=== PATIENT | female | born 1985 | race Caucasian/White ===

== ENCOUNTER 2016-11-12 18:31 | Emergency (ER) | payer OTHER ==
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
--- NOTE | 2016-11-12 19:56 | ED ORDER SUMMARY ---
..... Patient: BUSTER VALLE OrderSheet [facility] VisitID: [id number] [place] [address] 31y, F Registration Date/Time: 11/12/2016 ORDER SHEET Weight: 145.1 kg (stated) Allergies: Keflex, Latex, Penicillins, Pristiq, Reglan, Sulfa Antibiotics, Synthetic hormones, Vicodin, Clindamycin, Flu Virus Vaccine GENERAL ORDERS: MEDICATION ORDERS: Augmentin PO 875 mg (NOW) (19:30 11/12/2016 Sean Fitzpatrick) (19:48 TBowen R.N.) Claritin PO 10 mg (NOW) (19:31 11/12/2016 Sean Fitzpatrick) (19:45 TBowen R.N.) HydrOXYzine PO 50 mg (NOW) (19:31 11/12/2016 Sean Fitzpatrick) (19:46 TBowen R.N.) Percocet PO 5/325 mg (HIGH ALERT MEDICATION, NOW) (19:31 11/12/2016 eSan Fitzpatrick) (19:46 TBowen R.N.) Levaquin PO 750 mg (NOW) (19:32 11/12/2016 Sean Fitzpatrick) (19:46 TBowen R.N.) IV FLUIDS: ORDER SHEET NOTES: [Electronically signed by Deisy Whitlock R.N. (21:39 11/12/2016)] [Electronically signed by Kalin Barger Dr. (03:57 11/19/2016)] [Electronically locked/signed by Deisy Whitlock R.N. (21:39 11/12/2016)]
--- NOTE | 2016-11-12 19:56 | ED ORDER SUMMARY ---
..... Patient: BUSTER VALLE OrderSheet [facility] VisitID: [id number] [place] [address] 31y, F Registration Date/Time: 11/12/2016 ORDER SHEET Weight: 145.1 kg (stated) Allergies: Keflex, Latex, Penicillins, Pristiq, Reglan, Sulfa Antibiotics, Synthetic hormones, Vicodin, Clindamycin, Flu Virus Vaccine GENERAL ORDERS: MEDICATION ORDERS: Augmentin PO 875 mg (NOW) (19:30 11/12/2016 Sean Fitzpatrick) (19:48 TBowen R.N.) Claritin PO 10 mg (NOW) (19:31 11/12/2016 Sean Fitzpatrick) (19:45 TBowen R.N.) HydrOXYzine PO 50 mg (NOW) (19:31 11/12/2016 Sean Fitzpatrick) (19:46 TBowen R.N.) Percocet PO 5/325 mg (HIGH ALERT MEDICATION, NOW) (19:31 11/12/2016 Sean Fitzpatrick) (19:46 TBowen R.N.) Levaquin PO 750 mg (NOW) (19:32 11/12/2016 Sean Fitzpatrick) (19:46 TBowen R.N.) IV FLUIDS: ORDER SHEET NOTES: [Electronically signed by Deisy Whitlock R.N. (21:39 11/12/2016)] [Electronically signed by Kalin Barger Dr. (03:57 11/19/2016)] [Electronically locked/signed by Deisy Whitlock R.N. (21:39 11/12/2016)]
--- NOTE | 2016-11-12 19:56 | ED CLINICAL REPORT ---
Clinical Report - Physicians/Mid Levels [facility] [address] [place] [address] 11/12/2016 18:33 Patient: BUSTER VALLE Time Seen: 1924. Arrived- By private vehicle. Historian- patient. HISTORY OF PRESENT ILLNESS Chief Complaint: EARACHE. Modifying factors. Not worsened by anything. Not relieved by anything. This started today and is still present and worsening. It was gradual in onset and has been constant but is not gone now. Onset during brushing teeth. Location- right ear and left ear. The pain is described as severe. The patient has had ear pain and hearing loss. She has had nasal congestion, sinus pressure and a nasal discharge. Similar symptoms previously: None. Recent medical care: The patient was seen recently by a health care provider (being treated for sinus infection with abx). REVIEW OF SYSTEMS No fever, chills, cough or skin rash. All systems otherwise negative, except as recorded above. PAST HISTORY See nurses notes. Medications: Zpack. Percocet Oral. Sertraline HCl Oral. Allergies: Clindamycin. Flu Virus Vaccine. Keflex. Latex. Penicillins. Pristiq. Reglan. Sulfa Antibiotics. Synthetic hormones. Vicodin. SOCIAL HISTORY Smoker- current status unknown. No alcohol use or drug use. Is a local resident. ADDITIONAL NOTES The nursing notes have been reviewed. PHYSICAL EXAM Vital Signs: 11/12/2016 18:40 BP: 162/98. HR: 86. RR: 20. O2 saturation: 100%. Temp: 98.8 F. Pain level now: 6/10. Blood pressure normal. Oxygen saturation normal. Appearance: Alert. No acute distress. Eyes: Eyes normal inspection. No conjunctival findings. ENT: (right tympanic membrane is collapsed with loss of normal architecture. No drainage. Normal-appearing external auditory canals bilaterally. No mastoid tenderness no proptosis of the ear. The left tympanic membrane is bulging with positive air fluid levels. Loss of normal architecture as well. No masses. No foreign body.). Throat: No pharyngeal erythema, mouth ulcerations, tonsillar exudate or peritonsillar mass. The mucous membranes are not dry. Nose: Nose normal. Neck: Normal inspection. Neck supple. CVS: Normal heart rate and rhythm. Heart sounds normal. Respiratory: No respiratory distress. Breath sounds normal. Abdomen: Soft and nontender. Back: Normal inspection. : Normal genitalia. Skin: Skin warm and dry. Normal skin color. No rash. Normal skin turgor. Extremities: Extremities exhibit normal ROM. No lower extremity edema. PROGRESS AND PROCEDURES Course of Care: The patient is a pleasant 31-year-old female with past medical history significant for frequent ear infections presenting for evaluation of bilateral ear pain. Symptoms started after being recently diagnosed with a sinus infection. Patient is currently on antibiotics. Patient otherwise appears nontoxic and is in no acute distress. Symptoms will be managed here in the emergency department withmedications for helping with the nasal congestion and sinus pressure. Suspect that once the patient's symptoms have improved with a nasal decongestant, she will have improvement with her symptoms with the decreasedpressure. Patient is agreeable to the treatment and plan. Do not feel laboratory studies or imaging warranted at this time. Patient reports significant improvement with her symptoms following the administration of these medications. patient with recent antibiotic use, will have different medications provided to the patient for her symptoms at this time. because of the patient'srecent sinus infection and bilateral ear infection,Levaquin was selected for the antibiotic. Patient also noted to be allergic to cephalosporins and sulfa drugs. Patient is otherwise good outpatient candidate. I discussion with patient in regards to her workup here in the emergency department including diagnosis, home care, follow-up, return precautions All questions have been answered. The patient expressed understanding of these instructions and was agreeable to them. Disposition: Discharged. Condition: good. CLINICAL IMPRESSION Acute conductive hearing loss of the right and left ear (acute). 11/12/2016 18:40 BP: 162/98. HR: 86. RR: 20. O2 saturation: 100%. Temp: 98.8 F. Pain level now: 6/10. Hypertensive. Oxygen saturation normal. Acute suppurative right otitis media with perforation; acute suppurative left otitis media. Essential hypertension. INSTRUCTIONS Warnings: GENERAL WARNINGS: Return or contact your physician immediately if your condition worsens or changes unexpectedly, if not improving as expected, or if other problems arise. Specifically return if pain, vomiting, bleeding, breathing difficulty or fever. Your Current Medications: CONTINUE TAKING THE FOLLOWING MEDICATIONS: Percocet Oral. Sertraline HCl Oral. Whitneyck*. Prescription Medications: Levaquin 750 mg: take 1 tab orally every 12 hours for 10 days. No refills. Substitution is permissible. (disp 20 tabs) Percocet 5 mg/325 mg: take 1 tablet orally every 6 hours. Dispense twelve (12). No refill. Substitution is permissible. Hydroxyzine 50 mg: take 1 orally every 8 hours. Dispense thirty (30). No refill. (PRN congestion) OTC Medications: Claritin 10 mg (available over the counter): take 1 tablet orally every 12 hours as needed for congestion. Dispense thirty (30). No refill. Substitution is permissible. Follow-up: Return to the emergency department as needed. Follow up with your doctor in three days. Reason for referral: recheck today's concerns. Summary of care provided to patient via paper. Screening today revealed the patient's blood pressure to be in the hypertensive range. The patient should follow up with a primary care provider for blood pressure management. Understanding of the discharge instructions verbalized by patient. (Electronically signed by Kalin Barger Dr. 11/19/2016 3:57)
--- NOTE | 2016-11-19 03:57 | ED MAR SUMMARY ---
..... Medication Administration Record [facility] [address] [place] [address] Patient: BUSTER VALLE Visit ID: [id number] 31y, F Weight: 145.1 kg Height/Length: 65 in BMI: 53.3 ALLERGIES: Keflex, Latex, Penicillins, Pristiq, Reglan, Sulfa Antibiotics, Synthetic hormones, Vicodin, Flu Virus Vaccine, Clindamycin Given 1911/12/2016 Giovanna Muñoz Medication Administered: CLARITIN [PO] (LORATADINE), Dose: 10 mg Tablets PO. Medication Ordered: Claritin PO 10 mg (NOW). Given :11/12/2016 Giovanna Muñoz Medication Administered: HYDROXYZINE [PO] (HYDROXYZINE HCL), Dose: 50 mg Capsules PO. Medication Ordered: HydrOXYzine PO 50 mg (NOW). Given :11/12/2016 Giovanna Muñoz Medication Administered: PERCOCET [PO] (OXYCODONE-ACETAMINOPHEN), Dose: 1 tab 5/325 mg Tablets PO. Medication Ordered: Percocet PO 5/325 mg (HIGH ALERT MEDICATION, NOW). Given 11/12/2016 Giovanna Muñoz Medication Administered: LEVAQUIN [PO] (LEVOFLOXACIN), Dose: 750 mg Tablets PO. Medication Ordered: Levaquin PO 750 mg (NOW).
--- NOTE | 2016-11-19 03:57 | ED MAR SUMMARY ---
..... Medication Administration Record [facility] [address] [place] [address] Patient: BUSTER VALLE Visit ID: [id number] 31y, F Weight: 145.1 kg Height/Length: 65 in BMI: 53.3 ALLERGIES: Keflex, Latex, Penicillins, Pristiq, Reglan, Sulfa Antibiotics, Synthetic hormones, Vicodin, Flu Virus Vaccine, Clindamycin Given 1911/12/2016 Giovanna Muñoz Medication Administered: CLARITIN [PO] (LORATADINE), Dose: 10 mg Tablets PO. Medication Ordered: Claritin PO 10 mg (NOW). Given :11/12/2016 Giovanna Muñoz Medication Administered: HYDROXYZINE [PO] (HYDROXYZINE HCL), Dose: 50 mg Capsules PO. Medication Ordered: HydrOXYzine PO 50 mg (NOW). Given :11/12/2016 Giovanna Muñoz Medication Administered: PERCOCET [PO] (OXYCODONE-ACETAMINOPHEN), Dose: 1 tab 5/325 mg Tablets PO. Medication Ordered: Percocet PO 5/325 mg (HIGH ALERT MEDICATION, NOW). Given 11/12/2016 Giovanna Muñoz Medication Administered: LEVAQUIN [PO] (LEVOFLOXACIN), Dose: 750 mg Tablets PO. Medication Ordered: Levaquin PO 750 mg (NOW).
--- NOTE | 2016-11-19 03:57 | ED DISCHARGE INSTRUCTIONS ---
Patient: BUSTER VALLE General Instructions [facility] VisitID: [id number] [place] [address] 31y, F Registration Date/Time: 11/12/2016 Acute conductive hearing loss of the right and left ear (acute). 11/12/2016 18:40 BP: 162/98. HR: 86. RR: 20. O2 saturation: 100%. Temp: 98.8 F. Pain level now: 610. Hypertensive. Oxygen saturation normal. Acute suppurative right otitis media with perforation; acute suppurative left otitis media. Essential hypertension. INSTRUCTIONS Warnings: GENERAL WARNINGS: Return or contact your physician immediately if your condition worsens or changes unexpectedly, if not improving as expected, or if other problems arise. Specifically return if pain, vomiting, bleeding, breathing difficulty or fever. Your Current Medications: CONTINUE TAKING THE FOLLOWING MEDICATIONS: Percocet Oral. Sertraline HCl Oral. Zpack*. Prescription Medications: Levaquin 750 mg: take 1 tab orally every 12 hours for 10 days. No refills. Substitution is permissible. (disp 20 tabs) Percocet 5 mg/325 mg: take 1 tablet orally every 6 hours. Dispense twelve (12). No refill. Substitution is permissible. Hydroxyzine 50 mg: take 1 orally every 8 hours. Dispense thirty (30). No refill. (PRN congestion) OTC Medications: Claritin 10 mg (available over the counter): take 1 tablet orally every 12 hours as needed for congestion. Dispense thirty (30). No refill. Substitution is permissible. Follow-up: Return to the emergency department as needed. Follow up with your doctor in three days. Reason for referral: recheck today's concerns. Summary of care provided to patient via paper. Screening today revealed the patient's blood pressure to be in the hypertensive range. The patient should follow up with a primary care provider for blood pressure management. Understanding of the discharge instructions verbalized by patient. ADDITIONAL INFORMATION Middle Ear Infection (Adult) You have an infection of the middle ear (the space behind the eardrum). It can occur as a result of the common cold. This is because congestion can block the internal passage (eustachian tube) that drains fluid from the middle ear. When the middle ear fills with fluid, bacteria can grow there and cause an infection. Oral antibiotics are used to treat this illness, not ear drops. Symptoms usually start to improve within 1-2 days of treatment. Home Care: Finish all of the antibiotic medicine prescribed, even though you may feel better after the first few days. You may use acetaminophen (Tylenol) or ibuprofen (Motrin, Advil) to control pain, unless something else was prescribed. [NOTE: If you have chronic liver or kidney disease or have ever had a stomach ulcer or GI bleeding, talk with your doctor before using these medicines.] (Do not give aspirin to anyone under 18 years of age who is ill with a fever. It may cause severe liver damage.) Follow Up with your doctor or this facility in two weeks if all symptoms have not cleared, or if hearing does not return to normal within one month. Get Prompt Medical Attention if any of the following occur: Ear pain gets worse or does not improve after three days of treatment Unusual drowsiness or confusion Neck pain, stiff neck or headache Fluid or blood draining from the ear canal Fever of 100.4F (38C) or higher after 3 days of antibiotics, or as directed by your healthcare provider Convulsion (seizure) High Blood Pressure -- To Be Confirmed [No Tx] Your blood pressure was higher today than normal. Sometimes anxiety or pain can cause a temporary rise in blood pressure that later returns to normal. If your blood pressure is high on one measurement, this does not mean that you have hypertension (a chronic illness). However, you must have your blood pressure measured again within the next few days to find out if its still high. A normal blood pressure is 120/80 or less. The first (top) number is the "systolic" pressure. The second (bottom) number is the "diastolic" pressure. Hypertension exists when either the top number is 140 or higher, OR the bottom number is 90 or higher on repeated measurements. Blood pressure in the range of 120-140 (systolic) or 80-89 (diastolic) is considered "pre-hypertension". This means your are at risk for getting hypertension. You should have regular blood pressure checks to be sure your blood pressure is not rising. Home Care: Measure your blood pressure on 3 different days and write down the results. This can be done at your doctor's office or this facility. Some pharmacies and grocery stores offer automated blood pressure machines for your use. Follow Up: If your blood pressure is "high" (over 120/80) on 2 out of 3 days, you will need to follow up with your doctor for further evaluation and treatment. DO NOT PUT THIS OFF! Untreated high blood pressure increases the risk for heart attack, also known as acute myocardial infarction, or AMI, and stroke. It is a treatable condition. Get Prompt Medical Attention if any of the following occur: Chest pain or shortness of breath Severe headache Throbbing or rushing sound in the ears Nosebleed Sudden severe abdominal pain Extreme drowsiness, confusion or fainting Dizziness or vertigo (dizziness with spinning sensation) Weakness of an arm or leg or one side of the face Difficulty with speech or vision Levofloxacin Oral tablet What is this medicine? LEVOFLOXACIN (jaclyn hernandez) is a quinolone antibiotic. It is used to treat certain kinds of bacterial infections. It will not work for colds, flu, or other viral infections. How should I use this medicine? Take this medicine by mouth with a full glass of water. Follow the directions on the prescription label. This medicine can be taken with or without food. Take your medicine at regular intervals. Do not take your medicine more often than directed. Do not skip doses or stop your medicine early even if you feel better. Do not stop taking except on your doctor's advice. A special MedGuide will be given to you by the pharmacist with each prescription and refill. Be sure to read this information carefully each time. Talk to your assembler product regarding the use of this medicine in children. While this drug may be prescribed for children as young as 6 months for selected conditions, precautions do apply. What side effects may I notice from receiving this medicine? Side effects that you should report to your doctor or health child care nurse as soon as possible: -allergic reactions like skin rash or hives, swelling of the face, lips, or tongue -changes in vision -confusion, nightmares or hallucinations -difficulty breathing -irregular heartbeat, chest pain -joint, muscle or tendon pain -pain or difficulty passing urine -persistent headache with or without blurred vision -redness, blistering, peeling or loosening of the skin, including inside the mouth -seizures -unusual pain, numbness, tingling, or weakness -vaginal irritation, discharge Side effects that usually do not require medical attention (report to your doctor or health child care nurse if they continue or are bothersome): -diarrhea -dry mouth -headache -stomach upset, nausea -trouble sleeping What may interact with this medicine? Do not take this medicine with any of the following medications: - arsenic trioxide - chloroquine - droperidol - medicines for irregular heart rhythm like amiodarone, disopyramide, dofetilide, flecainide, quinidine, procainamide, sotalol - some medicines for depression or mental problems like phenothiazines, pimozide, and ziprasidone This medicine may also interact with the following medications: - amoxapine -antacids - cisapride - dairy products - didanosine (ddI) buffered tablets or powder - haloperidol - multivitamins -NSAIDS, medicines for pain and inflammation, like ibuprofen or naproxen - retinoid products like tretinoin or isotretinoin - risperidone - some other antibiotics like clarithromycin or erythromycin - sucralfate - theophylline - warfarin What if I miss a dose? If you miss a dose, take it as soon as you remember. If it is almost time for your next dose, take only that dose. Do not take double or extra doses. Where should I keep my medicine? Keep out of the reach of children. Store at room temperature between 15 and 30 degrees C (59 and 86 degrees F). Keep in a tightly closed container. Throw away any unused medicine after the expiration date. What should I tell my health care provider before I take this medicine? They need to know if you have any of these conditions: cerebral disease irregular heartbeat kidney disease seizure disorder an unusual or allergic reaction to levofloxacin, other antibiotics or medicines, foods, dyes, or preservatives or trying to get breast-feeding What should I watch for while using this medicine? Tell your doctor or health child care nurse if your symptoms do not improve or if they get worse. Drink several glasses of water a day and cut down on drinks that contain caffeine. You must not get dehydrated while taking this medicine. You may get drowsy or dizzy. Do not drive, use machinery, or do anything that needs mental alertness until you know how this medicine affects you. Do not sit or stand up quickly, especially if you are an older patient. This reduces the risk of dizzy or fainting spells. This medicine can make you more sensitive to the sun. Keep out of the sun. If you cannot avoid being in the sun, wear protective clothing and use a sunscreen. Do not use sun lamps or tanning beds/booths. Contact your doctor if you get a sunburn. If you are a diabetic monitor your blood glucose carefully. If you get an unusual reading stop taking this medicine and call your doctor right away. Do not treat diarrhea with [id number] products. Contact your doctor if you have diarrhea that lasts more than 2 days or if the diarrhea is severe and watery. Avoid antacids, calcium, iron, and zinc products for 2 hours before and 2 hours after taking a dose of this medicine. Oxycodone Hydrochloride, Acetaminophen Oral tablet What is this medicine? ACETAMINOPHEN; OXYCODONE (a set a KATIE trevor fen; ox i KOE done) is a pain reliever. It is used to treat mild to moderate pain. How should I use this medicine? Take this medicine by mouth with a full glass of water. Follow the directions on the prescription label. Take your medicine at regular intervals. Do not take your medicine more often than directed. Talk to your assembler product regarding the use of this medicine in children. Special care may be needed. Patients over 65 years old may have a stronger reaction and need a smaller dose. What side effects may I notice from receiving this medicine? Side effects that you should report to your doctor or health child care nurse as soon as possible: allergic reactions like skin rash, itching or hives, swelling of the face, lips, or tongue breathing difficulties, wheezing confusion light headedness or fainting spells severe stomach pain yellowing of the skin or the whites of the eyes Side effects that usually do not require medical attention (report to your doctor or health child care nurse if they continue or are bothersome): dizziness drowsiness nausea vomiting What may interact with this medicine? alcohol antihistamines barbiturates like amobarbital, butalbital, butabarbital, methohexital, pentobarbital, phenobarbital, thiopental, and secobarbital benztropine drugs for bladder problems like solifenacin, trospium, oxybutynin, tolterodine, hyoscyamine, and methscopolamine drugs for breathing problems like ipratropium and tiotropium drugs for certain stomach or intestine problems like propantheline, homatropine methylbromide, glycopyrrolate, atropine, belladonna, and dicyclomine general anesthetics like etomidate, ketamine, nitrous oxide, propofol, desflurane, enflurane, halothane, isoflurane, and sevoflurane medicines for depression, anxiety, or psychotic disturbances medicines for sleep muscle relaxants naltrexone narcotic medicines (opiates) for pain phenothiazines like perphenazine, thioridazine, chlorpromazine, mesoridazine, fluphenazine, prochlorperazine, promazine, and trifluoperazine scopolamine tramadol trihexyphenidyl What if I miss a dose? If you miss a dose, take it as soon as you can. If it is almost time for your next dose, take only that dose. Do not take double or extra doses. Where should I keep my medicine? Keep out of the reach of children. This medicine can be abused. Keep your medicine in a safe place to protect it from theft. Do not share this medicine with anyone. Selling or giving away this medicine is dangerous and against the law. Store at room temperature between 20 and 25 degrees C (68 and 77 degrees F). Keep container tightly closed. Protect from light. This medicine may cause accidental overdose and if it is taken by other adults, children, or pets. Flush any unused medicine down the toilet to reduce the chance of harm. Do not use the medicine after the expiration date. What should I tell my health care provider before I take this medicine? They need to know if you have any of these conditions: brain tumor Crohn's disease, inflammatory bowel disease, or ulcerative colitis drink more than 3 alcohol containing drinks per day drug abuse or addiction head injury heart or circulation problems kidney disease or problems going to the bathroom liver disease lung disease, asthma, or breathing problems an unusual or allergic reaction to acetaminophen, oxycodone, other opioid analgesics, other medicines, foods, dyes, or preservatives or trying to get breast-feeding What should I watch for while using this medicine? Tell your doctor or health child care nurse if your pain does not go away, if it gets worse, or if you have new or a different type of pain. You may develop tolerance to the medicine. Tolerance means that you will need a higher dose of the medication for pain relief. Tolerance is normal and is expected if you take this medicine for a long time. Do not suddenly stop taking your medicine because you may develop a severe reaction. Your body becomes used to the medicine. This does NOT mean you are addicted. Addiction is a behavior related to getting and using a drug for a non-medical reason. If you have pain, you have a medical reason to take pain medicine. Your doctor will tell you how much medicine to take. If your doctor wants you to stop the medicine, the dose will be slowly lowered over time to avoid any side effects. You may get drowsy or dizzy. Do not drive, use machinery, or do anything that needs mental alertness until you know how this medicine affects you. Do not stand or sit up quickly, especially if you are an older patient. This reduces the risk of dizzy or fainting spells. Alcohol may interfere with the effect of this medicine. Avoid alcoholic drinks. There are different types of narcotic medicines (opiates) for pain. If you take more than one type at the same time, you may have more side effects. Give your health care provider a list of all medicines you use. Your doctor will tell you how much medicine to take. Do not take more medicine than directed. Call emergency for help if you have problems breathing. The medicine will cause constipation. Try to have a bowel movement at least every 2 to 3 days. If you do not have a bowel movement for 3 days, call your doctor or health child care nurse. Do not take Tylenol (acetaminophen) or medicines that have acetaminophen with this medicine. Too much acetaminophen can be very dangerous. Many nonprescription medicines contain acetaminophen. Always read the labels carefully to avoid taking more acetaminophen. Hydroxyzine Pamoate Oral capsule What is this medicine? HYDROXYZINE (char DROX i zeen) is an antihistamine. This medicine is used to treat allergy symptoms. It is also used to treat anxiety and tension. This medicine can be used with other medicines to induce sleep before surgery. How should I use this medicine? Take this medicine by mouth with a full glass of water. Follow the directions on the prescription label. You may take this medicine with food or on an empty stomach. Take your medicine at regular intervals. Do not take your medicine more often than directed. Talk to your assembler product regarding the use of this medicine in children. Special care may be needed. While this drug may be prescribed for children as young as 6 years of age for selected conditions, precautions do apply. Patients over 65 years old may have a stronger reaction and need a smaller dose. What side effects may I notice from receiving this medicine? Side effects that you should report to your doctor or health child care nurse as soon as possible: fast or irregular heartbeat difficulty passing urine seizures slurred speech or confusion tremor Side effects that usually do not require medical attention (report to your doctor or health child care nurse if they continue or are bothersome): constipation drowsiness fatigue headache stomach upset What may interact with this medicine? alcohol barbiturate medicines for sleep or seizures medicines for colds, allergies medicines for depression, anxiety, or emotional disturbances medicines for pain medicines for sleep muscle relaxants What if I miss a dose? If you miss a dose, take it as soon as you can. If it is almost time for your next dose, take only that dose. Do not take double or extra doses. Where should I keep my medicine? Keep out of the reach of children. Store at room temperature between 15 and 30 degrees C (59 and 86 degrees F). Keep container tightly closed. Throw away any unused medicine after the expiration date. What should I tell my health care provider before I take this medicine? They need to know if you have any of these conditions: any chronic illness difficulty passing urine glaucoma heart disease kidney disease liver disease lung disease an unusual or allergic reaction to hydroxyzine, cetirizine, other medicines, foods, dyes, or preservatives or trying to get breast-feeding What should I watch for while using this medicine? Tell your doctor or health child care nurse if your symptoms do not improve. You may get drowsy or dizzy. Do not drive, use machinery, or do anything that needs mental alertness until you know how this medicine affects you. Do not stand or sit up quickly, especially if you are an older patient. This reduces the risk of dizzy or fainting spells. Alcohol may interfere with the effect of this medicine. Avoid alcoholic drinks. Your mouth may get dry. Chewing sugarless gum or sucking hard candy, and drinking plenty of water may help. Contact your doctor if the problem does not go away or is severe. This medicine may cause dry eyes and blurred vision. If you wear contact lenses you may feel some discomfort. Lubricating drops may help. See your eye doctor if the problem does not go away or is severe. If you are receiving skin tests for allergies, tell your doctor you are using this medicine. Loratadine Oral tablet, extended release 24 hour What is this medicine? LORATADINE (sneha AT a madison) is an antihistamine. It helps to relieve sneezing, runny nose, and itchy, watery eyes. This medicine is used to treat the symptoms of allergies. It is also used to treat itchy skin rash and hives. How should I use this medicine? Take this medicine by mouth with a glass of water. Follow the directions on the label. You may take this medicine with food or on an empty stomach. Take your medicine at regular intervals. Do not take your medicine more often than directed. Talk to your assembler product regarding the use of this medicine in children. While this medicine may be used in children as young as 6 years for selected conditions, precautions do apply. What side effects may I notice from receiving this medicine? Side effects that you should report to your doctor or health child care nurse as soon as possible: allergic reactions like skin rash, itching or hives, swelling of the face, lips, or tongue breathing problems unusually restless or nervous Side effects that usually do not require medical attention (report to your doctor or health child care nurse if they continue or are bothersome): drowsiness dry or irritated mouth or throat headache What may interact with this medicine? other medicines for colds or allergies What if I miss a dose? If you miss a dose, take it as soon as you can. If it is almost time for your next dose, take only that dose. Do not take double or extra doses. Where should I keep my medicine? Keep out of the reach of children. Store at room temperature between 2 and 30 degrees C (36 and 86 degrees F). Protect from moisture. Throw away any unused medicine after the expiration date. What should I tell my health care provider before I take this medicine? They need to know if you have any of these conditions: asthma kidney disease liver disease an unusual or allergic reaction to loratadine, other antihistamines, other medicines, foods, dyes, or preservatives or trying to get breast-feeding What should I watch for while using this medicine? Tell your doctor or healthcare professional if your symptoms do not start to get better or if they get worse. Your mouth may get dry. Chewing sugarless gum or sucking hard candy, and drinking plenty of water may help. Contact your doctor if the problem does not go away or is severe. You may get drowsy or dizzy. Do not drive, use machinery, or do anything that needs mental alertness until you know how this medicine affects you. Do not stand or sit up quickly, especially if you are an older patient. This reduces the risk of dizzy or fainting spells. You have been given the following additional information: Otitis Media, Abx Tx (Adult) Hypertension, To Be Confirmed Levofloxacin Oral tablet Oxycodone Hydrochloride, Acetaminophen Oral tablet Hydroxyzine Pamoate Oral capsule Loratadine Oral tablet, extended release 24 hour (Electronically signed by Kalin Barger Dr. 11/19/2016 3:57)
--- NOTE | 2016-11-19 03:57 | ED MED RECONCILIATION SUMMARY ---
Patient: BUSTER VALLE Medication Reconciliation Report [facility] VisitID: [id number] [place] [address] 31y, F Registration Date/Time: 11/12/2016 Weight: 145.1 kg Height/Length: 65 in. BMI: 53.3 ALLERGIES: Clindamycin, Flu Virus Vaccine, Keflex, Latex, Penicillins, Pristiq, Reglan, Sulfa Antibiotics, Synthetic hormones, Vicodin The patient's Home Medications are listed below: CONTINUE TAKING THE FOLLOWING MEDICATIONS: Percocet Oral Sertraline HCl Oral Zpack The source(s) of the original Home Medication information: patient The following Medications were given to the patient in the Emergency Department: Claritin [PO] PO 10 mg, administered: 11/12/2016 7:45:00 PM Hydroxyzine [PO] PO 50 mg, administered: 11/12/2016 7:46:00 PM Percocet [PO] PO 1 tab, administered: 11/12/2016 7:46:00 PM Levaquin [PO] PO 750 mg, administered: 11/12/2016 7:46:00 PM The following Medications were prescribed to the patient: Levaquin 750 mg: take 1 tab orally every 12 hours for 10 days. No refills. Substitution is permissible.(disp 20 tabs) -- Kalin Barger Dr. Claritin 10 mg (available over the counter): take 1 tablet orally every 12 hours as needed for congestion. Dispense thirty (30). No refill. Substitution is permissible. -- Kalin Barger Dr. Percocet 5 mg/325 mg: take 1 tablet orally every 6 hours. Dispense twelve (12). No refill. Substitution is permissible. -- Kalin Barger Dr. Hydroxyzine 50 mg: take 1 orally every 8 hours. Dispense thirty (30). No refill.(PRN congestion) -- Kalin Barger Dr.
--- NOTE | 2016-11-19 03:57 | ED MED RECONCILIATION SUMMARY ---
Patient: BUSTER VALLE Medication Reconciliation Report [facility] VisitID: [id number] [place] [address] 31y, F Registration Date/Time: 11/12/2016 Weight: 145.1 kg Height/Length: 65 in. BMI: 53.3 ALLERGIES: Clindamycin, Flu Virus Vaccine, Keflex, Latex, Penicillins, Pristiq, Reglan, Sulfa Antibiotics, Synthetic hormones, Vicodin The patient's Home Medications are listed below: CONTINUE TAKING THE FOLLOWING MEDICATIONS: Percocet Oral Sertraline HCl Oral Zpack The source(s) of the original Home Medication information: patient The following Medications were given to the patient in the Emergency Department: Claritin [PO] PO 10 mg, administered: 11/12/2016 7:45:00 PM Hydroxyzine [PO] PO 50 mg, administered: 11/12/2016 7:46:00 PM Percocet [PO] PO 1 tab, administered: 11/12/2016 7:46:00 PM Levaquin [PO] PO 750 mg, administered: 11/12/2016 7:46:00 PM The following Medications were prescribed to the patient: Levaquin 750 mg: take 1 tab orally every 12 hours for 10 days. No refills. Substitution is permissible.(disp 20 tabs) -- Kalin Barger Dr. Claritin 10 mg (available over the counter): take 1 tablet orally every 12 hours as needed for congestion. Dispense thirty (30). No refill. Substitution is permissible. -- Kalin Barger Dr. Percocet 5 mg/325 mg: take 1 tablet orally every 6 hours. Dispense twelve (12). No refill. Substitution is permissible. -- Kalin Barger Dr. Hydroxyzine 50 mg: take 1 orally every 8 hours. Dispense thirty (30). No refill.(PRN congestion) -- Kalin Barger Dr.
== END 2016-11-12 20:15 | disposition home or self-care (01) ==
LOC: ED SRH 18:31
DX: H66.013 Acute suppurative otitis media with spontaneous rupture of ear drum, bilateral (principal); I10 Essential (primary) hypertension; Z88.8 Allergy status to other drugs, medicaments and biological substances; Z88.0 Allergy status to penicillin; Z88.2 Allergy status to sulfonamides; Z88.5 Allergy status to narcotic agent